=== PATIENT | male | born 1980 | race Caucasian/White ===

== ENCOUNTER 2019-02-04 22:54 | Emergency (ER) | payer MEDICAID, OTHER ==
[~2019-02-04] VITALS: Ht 177.8 cm; Wt 74.9 kg
[2019-02-04 23:11] VITALS: BP 127/83
== END 2019-02-05 00:17 | disposition home or self-care (01) ==
LOC: ED 02-05 00:13
DX: L02.413 Cutaneous abscess of right upper limb (principal); F17.200 Nicotine dependence, unspecified, uncomplicated; I10 Essential (primary) hypertension
CPT/HCPCS: 10060

== ENCOUNTER 2019-08-03 14:03 | Emergency (ER) | payer MEDICAID ==
[~2019-08-03] VITALS: Ht 180.3 cm; Wt 86.4 kg
--- NOTE | 2019-08-03 16:18 | NUR ---
PT AMBUALTED STEADILY TO ROOM FROM LOBBY WITH RN. THELMA NOTED. PT REPORTS L FACIAL SWELLING X TWO DAYS, FEVER X TODAY. L UPPER DENTAL SWELLING NOTED. PT MANAGING AIRWAY AND SECRETIONS. SPEECH CLEAR. HX OF HIV. FRIEND AT BEDSIDE. BP/SPO2 MONITORING IN PLACE.
[2019-08-03] MEDS ORDERED: CEFAZOLIN PMX 1GM/50ML 50 ML IV ONE (17:30)
[2019-08-03] MEDS ORDERED: ONDANSETRON 2MG/ML, 2ML ONE (17:36)
[2019-08-03] MEDS ORDERED: CEFAZOLIN PMX 1GM/50ML 50 ML ONE (17:36)
[2019-08-03] MEDS ORDERED: HYDROmorphone 1 MG/ML, 1ML INJ ONE (17:36)
--- NOTE | 2019-08-03 17:46 | NUR ---
PIV ESTABLISHED. LABS DRAWN BY PIE FILLER. BC X1 DRAWN BY PIE FILLER. PER ERP ONLY ONE BC DRAWN PRIOR TO ABX ADMIN. PT MEDICATED PER EMAR.
[2019-08-03 17:47] VITALS: BP_DIAS 93
[2019-08-03 17:49] LABS: BASOPHILS # (AUTO) 0.03 x10^3/uL (0-0.1); BASOPHILS % (AUTO) 0 % (0-1); EOSINOPHILS # (AUTO) 0.02 x10^3/uL (0-0.4); EOSINOPHILS % (AUTO) 0 % (1-7); LYMPHOCYTES # (AUTO) 3.27 x10^3/uL (1-3.4); LYMPHOCYTES % (AUTO) 26 % (22-44); MD NO; MEAN CORPUSCULAR HEMOGLOBIN 28.4 pg (27.5-34.5); MEAN CORPUSCULAR HGB CONC 32.7 g/dL (33.2-36.2); MEAN CORPUSCULAR VOLUME 86.8 fL (81-97); MEAN PLATELET VOLUME 6.1 fL (7.4-10.4); MONOCYTES # (AUTO) 1.25 x10^3/uL (0.2-0.8); MONOCYTES % (AUTO) 10 % (2-9); NEUTROPHILS # (AUTO) 7.88 x10^3/uL (1.8-6.8); NEUTROPHILS % (AUTO) 63 % (42-75); PLATELET COUNT 364 x10^3/uL (130-400); RED BLOOD COUNT 4.82 x10^6/uL (4.38-5.82)
[2019-08-03] MEDS ORDERED: ONDANSETRON 2MG/ML, 2ML IVPush ONE (18:00)
[2019-08-03] MEDS ORDERED: HYDROmorphone 2 MG/ML, 1ML IVPush PRN (18:00)
[2019-08-03 18:01] LABS: ALBUMIN 3.9 g/dL (3.4-5.0); ANION GAP 6 mmol/L (5-15); CALCIUM 9.3 mg/dL (8.5-10.1); CHLORIDE 104 mmol/L (98-107); CREATININE 0.94 mg/dL (0.7-1.3)
--- NOTE | 2019-08-03 18:13 | NUR ---
PT TO CT. REPORTS SIGNIFICANT IMPROVEMENT IN PAIN W/ MEDICATIONS. PT ON 2L O2 BY NC FOR SUPPORT WHILE IN CT
--- NOTE | 2019-08-03 18:27 | NUR ---
TASK RN: PT BACK FROM IMAGING.
[2019-08-03] MEDS ORDERED: OMNIPAQUE 350 MG/ML, 100ML BOTTLE ONE (18:30)
[2019-08-03 19:52] VITALS: BP_SYST 139
--- NOTE | 2019-08-03 19:52 | NUR ---
PT REPORTS SIGNIFICANT IMPROVEMENT IN PAIN W MEDICATIONS. PT AWARE OF POC (DC) AND DEMONSTRATES UNDERSATNDING. IV DC'D. PT OFF MONITORING TO DRESS. PT AMBULATED STEADILY TO BATHROOM WO ASSISTANCE. FRIEND AT BEDSIDE
== END 2019-08-03 20:08 | disposition home or self-care (01) ==
LOC: ED 20:00
DX: K02.9 Dental caries, unspecified (principal); K04.7 Periapical abscess without sinus
CPT/HCPCS: 36415; 70491; 80048; 82040; 83605; 85025; 87040; 96365; 96375; 99284; J0690; J1170; J2405; Q9967